=== PATIENT | female | born 1955 | race Caucasian/White ===

== ENCOUNTER 2017-07-18 10:53 | Day surgery (SDC) | payer BC, OTHER ==
[~2017-07-18] VITALS: Ht 167.6 cm; Wt 76.0 kg
[2017-07-18 12:06] VITALS: BP 144/75; PULSE 71; TEMP 97.7
[2017-07-18] MEDS ORDERED: HYZAAR 50-12.1 UDTAB PO (12:21)
[2017-07-18] MEDS ORDERED: ASPIRIN 32325 MG/TAB PO (12:22)
[2017-07-18 15:15] VITALS: BP 137/69; PULSE 72; TEMP 98.6
[2017-07-18] MEDS ORDERED: NORCO 325 MG-51 TAB PO (15:24)
[2017-07-18] MEDS ORDERED: PYRIDIUM 100MG100 MG PO (15:25)
[2017-07-18] MEDS ORDERED: COLACE 100100 MG/CAP PO (15:27)
[2017-07-18 15:30] VITALS: BP 136/53; PULSE 58
[2017-07-18 16:00] VITALS: BP 142/81; PULSE 67
== END 2017-07-18 16:10 | disposition home or self-care (01) ==
LOC: SDCO 10:53
DX: C67.2 Malignant neoplasm of lateral wall of bladder (principal); R31.0 Gross hematuria; I95.9 Hypotension, unspecified; F17.210 Nicotine dependence, cigarettes, uncomplicated; Z80.52 Family history of malignant neoplasm of bladder; Z80.7 Family history of other malignant neoplasms of lymphoid, hematopoietic and related tissues; I10 Essential (primary) hypertension
CPT/HCPCS: C1769; J0690; J1100; J2405; J2704; J3010; J7120; Q9967

== ENCOUNTER 2017-12-05 10:19 | Inpatient (IN) | payer BC, OTHER ==
[~2017-12-05] VITALS: Ht 167.6 cm; Wt 69.7 kg
[~2017-12-05 10:19] MED LIST: ASPIRIN 32325 MG/TAB PO; COLACE 100100 MG/CAP PO; HYZAAR 50-12.1 UDTAB PO; NORCO 325 MG-51 TAB PO; PYRIDIUM 100MG100 MG PO
[2017-12-23] VITALS (11 sets, daily range): BP systolic 110–148; BP diastolic 61–81; PULSE 68–98; TEMP 97.3–98
[2017-12-24] VITALS (7 sets, daily range): BP systolic 103–137; BP diastolic 57–94; PULSE 73–96; TEMP 97.1–98.4
[2017-12-24 06:14] LABS: BASO % 0.2 % (0.0-2.0); EOS % 0.2 % (0-4.0); GRAN # 10.6 (1.4-6.5); GRAN % 82.1 % (42.2-75.2); LYMPH # 1.5 (1.2-3.4); LYMPH % 11.5 % (20.0-51.0); MEAN CELL VOLUME 95 fl (80.0-100.0); MEAN CORPUSCULAR HGB CONC 33 g/dl (33.0-37.0); MEAN PLATELET VOLUME 8.7 fl (7.4-10.4); MONO # 0.7 (0.1-0.6); MONO % 5.6 % (1.7-9.3); PLATELET COUNT 168 K/mm3 (130-400); RED BLOOD COUNT 3.56 M/mm3 (4.10-5.30); REDCELL DISTRIBUTION WIDTH-CV 18.1 % (11.5-14.5)
[2017-12-24 06:20] LABS: HEMATOCRIT 33.9 % (37.0-47.0); HEMOGLOBIN 11.1 g/dl (12.5-16.0); MEAN CORPUSCULAR HEMOGLOBIN 31 pg (27.0-31.0)
[2017-12-25 01:05] VITALS: BP 131/71; BP 99/62; PULSE 72; PULSE 81; TEMP 98
[2017-12-25 04:57] VITALS: BP 113/67; PULSE 73; TEMP 97.9
[2017-12-25 09:05] VITALS: BP 119/67; PULSE 67; TEMP 97.5
[2017-12-25 14:39] VITALS: BP 105/58; PULSE 71; TEMP 97.9
== END 2017-12-25 15:37 | disposition home or self-care (01) | DRG 655 ==
LOC: SURG 12-09 07:30 → INPTSU 12-23 07:52 → SURG 12-23 07:52 → INPTSU 12-23 14:03 → SURG 12-23 14:32
PROVIDERS: Urology
PROC: 07BC4ZZ Excision of Pelvis Lymphatic, Percutaneous Endoscopic Approach (ICD-10-PCS; 2017-12-23)
PROC: 8E0W4CZ Robotic Assisted Procedure of Trunk Region, Percutaneous Endoscopic Approach (ICD-10-PCS; 2017-12-23)
PROC: 0TBB4ZZ Excision of Bladder, Percutaneous Endoscopic Approach (ICD-10-PCS; principal; 2017-12-23 14:00)
DX: C67.4 Malignant neoplasm of posterior wall of bladder (principal); F17.210 Nicotine dependence, cigarettes, uncomplicated
CPT/HCPCS: OP; A4314; A9284; G0378; J1650; J1885; J2704; J2710; J7120